=== PATIENT | female | born 1985 | race African-American/Black ===

== ENCOUNTER 2018-02-21 17:47 | Emergency (ER) | payer SELFPAY | END 2018-02-21 18:19 | disposition home or self-care (01) | LOC: BURERS 17:47 | DX: B34.9 Viral infection, unspecified (principal) | CPT/HCPCS: 99283 ==

== ENCOUNTER 2018-11-02 21:31 | Emergency (ER) | payer SELFPAY | END 2018-11-02 21:46 | disposition home or self-care (01) | LOC: BURERS 21:31 | DX: R19.7 Diarrhea, unspecified (principal) | CPT/HCPCS: 99281 ==

== ENCOUNTER 2019-08-22 09:41 | Emergency (ER) | payer SELFPAY | END 2019-08-22 10:07 | disposition home or self-care (01) | LOC: BURERS 09:41 | DX: J02.9 Acute pharyngitis, unspecified (principal) | CPT/HCPCS: 99283 ==

== ENCOUNTER 2019-10-25 14:28 | Emergency (ER) | payer SELFPAY | END 2019-10-25 15:00 | disposition home or self-care (01) | LOC: BURERS 14:28 | DX: R51 Headache (principal); Z79.01 Long term (current) use of anticoagulants | CPT/HCPCS: 99281 ==

== ENCOUNTER 2020-10-06 21:12 | Emergency (ER) | payer SELFPAY ==
[2020-10-07 20:17] LABS: SARS-CoV-2 MS2 Positive; SARS-CoV-2 N Gene Positive; SARS-CoV-2 S Gene Negative; SARS-CoV-2 by NAA DETECTED (NotDetected); SARS-CoV-2 orf1ab Positive
== END 2020-10-06 22:00 | disposition home or self-care (01) ==
LOC: BURERS 21:12
DX: U07.1 COVID-19 (principal)
CPT/HCPCS: 87635; 99283; U0003

== ENCOUNTER 2021-07-19 13:07 | Emergency (ER) | payer OTHER, SELFPAY | END 2021-07-19 14:29 | disposition home or self-care (01) | LOC: BURERS 13:07 | DX: S80.02XA Contusion of left knee, initial encounter (principal); W01.0XXA Fall on same level from slipping, tripping and stumbling without subsequent striking against object, initial encounter; Y92.89 Other specified places as the place of occurrence of the external cause; Y99.0 Civilian activity done for income or pay ==

== ENCOUNTER 2021-09-13 08:43 | Emergency (ER) | payer SELFPAY ==
[2021-09-13] MEDS ORDERED: Fentanyl 100 MCG/2 ML VIAL ONE (09:18)
[2021-09-13 09:24] LABS: Bilirubin Negative (Negative); Blood, Urine Large (Negative); Clarity Cloudy (Clear); Glucose, Urine (Dipstick) 100 mg/dL (Negative); Ketone, Urine Negative (Negative); Leukocyte Trace (Negative); Nitrite Negative (Negative); Protein, Urine (Dipstick) Trace mg/dL (Neg-Trace); Urobilinogen 0.2 mg/dL (Less than 2)
[2021-09-13 09:28] LABS: Specific Gravity, Urine 1.028 (1.002-1.036)
[2021-09-13 09:30] LABS: #Basophils 0.1 thou/uL (0.0-0.2); #Eosinphils 0.2 thou/uL (0.0-0.7); #Lymphocytes 2.1 thou/uL (1.20-3.40); #Monocytes 0.6 thou/uL (0.11-0.59); #Neutrophils 6.7 thou/uL (1.40-6.50); %Basophils 1.2 % (0.0-1.0); %Eosinophils 2.5 % (0.0-10.0); %Monocytes 5.9 % (0.0-10.0); %Neutrophils 68.5 % (42.0-75.0); Hemoglobin 13.4 g/dL (12.0-16.0); Mean Corpuscular Hemoglobin 28.6 pg (27.0-31.0); Mean Corpuscular Volume 86.6 fL (78.0-98.0); Platelet Count 346 thou/uL (130-400); RBC Distribution Width 12.9 % (11.5-14.5); Red Blood Cell (RBC) Count 4.68 mill/uL (4.20-5.40); White Blood Cell (WBC) Count 9.7 thou/uL (4.8-10.8)
[2021-09-13 09:35] LABS: Bacteria/HPF 2+ HPF (None Seen)
[2021-09-13 09:35] LABS: ALT (SGPT) 15 U/L (8-55); AST (SGOT) 11 U/L (5-34); Albumin 3.9 g/dL (3.5-5.0); Alkaline Phosphatase 55 U/L (40-110); Anion Gap 13 mmol/L (10-20); BHCG - Serum Negative (NEGATIVE); BUN (Urea Nitrogen) 10 mg/dL (7.0-18.7); Bilirubin, Total 0.5 mg/dL (0.2-1.2); Calc. Creatinine Clearance 0 mL/min (70-130); Calcium 9.9 mg/dL (7.8-10.44); Carbon Dioxide 23 mmol/L (22-29); Chloride 107 mmol/L (98-107); Globulin 3.8 g/dL (2.4-3.5); Glucose 103 mg/dL (70-105); Lipase 31 U/L (8-78); Pregs Control Background? CLEAR/WHITE (CLR/WHITE); Pregs Control Bar Appear? YES (CONTROL BAR); Protein, Total 7.7 g/dL (6.0-8.3); Sodium 139 mmol/L (136-145)
[2021-09-13] MEDS ORDERED: Morphine 4 MG/ML VIAL ONE (10:38)
[2021-09-13] MEDS ORDERED: diphenhydrAMINE 50 MG/ML VIAL ONE (10:52)
== END 2021-09-13 11:06 | disposition short-term general hospital (02) ==
LOC: BURERS 08:43
DX: N83.201 Unspecified ovarian cyst, right side (principal)
CPT/HCPCS: 36415; 74177; 80053; 81003; 81015; 83690; 84703; 85025; 96374; 96375; J1200; J2270; J3010

== ENCOUNTER 2021-10-14 10:38 | Emergency (ER) | payer SELFPAY ==
[2021-10-14] MEDS ORDERED: Phenazopyridine HCl 97.5 MG TABLET ONE (10:58)
[2021-10-14] MEDS ORDERED: Nitrofurantoin Monohyd/M-Cryst 100 MG CAP ONE (11:29)
[2021-10-14 15:49] LABS: Bilirubin Small (Negative); Blood, Urine Large (Negative); Clarity Cloudy (Clear); Glucose, Urine (Dipstick) Negative (Negative); Ketone, Urine Negative (Negative); Leukocyte Small (Negative); Nitrite Positive (Negative); Protein, Urine (Dipstick) > or equal to 300 mg/dL (Neg-Trace)
[2021-10-14 15:50] LABS: Specific Gravity, Urine 1.025 (1.002-1.036)
[2021-10-14 15:51] LABS: Bacteria/HPF 2+ HPF (None Seen); RBC/HPF Greater than 50 HPF (0-3); Squamous Epithelial 0-3 HPF (0-3); WBC/HPF 21-50 HPF (0-3)
== END 2021-10-14 12:00 | disposition home or self-care (01) ==
LOC: BURERS 10:38
DX: N39.0 Urinary tract infection, site not specified (principal)
CPT/HCPCS: 81001; 99284

== ENCOUNTER 2022-12-02 08:30 | Emergency (ER) | payer MEDICAID, OTHER ==
[2022-12-02] MEDS ORDERED: Dicyclomine 20 MG/2 ML VIAL ONE (09:14)
[2022-12-02 09:47] LABS: Bilirubin Negative (Negative); Blood, Urine Trace (Negative); Clarity Cloudy (Clear); Glucose, Urine (Dipstick) Negative (Negative); Ketone, Urine Negative (Negative); Leukocyte Negative (Negative); Nitrite Negative (Negative); Protein, Urine (Dipstick) Negative (Neg-Trace); Urobilinogen 0.2 mg/dL (Less than 2)
[2022-12-02 09:48] LABS: Specific Gravity, Urine 1.028 (1.002-1.036)
[2022-12-02 09:50] LABS: Pregnancy Test - Urine (BHCG) Negative (Negative); Pregu Control Background? CLEAR/WHITE (CLR/WHITE); Pregu Control Bar Appear? YES (CONTROL BAR); Specific Gravity 1.028 (1.002-1.036)
[2022-12-02 09:52] LABS: #Basophils 0.1 thou/uL (0.0-0.2); #Eosinphils 0.2 thou/uL (0.0-0.7); #Lymphocytes 1.8 thou/uL (1.20-3.40); #Monocytes 0.7 thou/uL (0.11-0.59); %Basophils 1.1 % (0.0-1.0); %Eosinophils 2.2 % (0.0-10.0); %Lymphocytes 18.9 % (21.0-51.0); %Monocytes 6.7 % (0.0-10.0); %Neutrophils 71.2 % (42.0-75.0); Hemoglobin 11.6 g/dL (12.0-16.0); Mean Corpuscular HGB CONC 31.8 g/dL (32.0-36.0); Mean Corpuscular Hemoglobin 27.7 pg (27.0-31.0); Mean Corpuscular Volume 87.1 fl (78.0-98.0); Mean Platelet Volume 5.8 fL (7.4-10.4); Platelet Count 318 10x3/uL (130-400); RBC Distribution Width 14.6 % (11.5-14.5); White Blood Cell (WBC) Count 9.8 10x3/uL (4.8-10.8)
[2022-12-02 09:57] LABS: Bacteria/HPF 3+ HPF (None Seen); Mucous/LPF 4+ LPF (<2+); RBC/HPF 0-3 HPF (0-3); WBC/HPF 0-3 HPF (0-3)
[2022-12-02 10:05] LABS: ALT (SGPT) 20 U/L (8-55); AST (SGOT) 14 U/L (5-34); Alkaline Phosphatase 54 U/L (40-110); Anion Gap 16 mmol/L (10-20); BUN (Urea Nitrogen) 11 mg/dL (7.0-18.7); Bilirubin, Total 0.5 mg/dL (0.2-1.2); Calc. Creatinine Clearance 0 mL/min (70-130); Carbon Dioxide 22 mmol/L (22-29); Chloride 107 mmol/L (98-107); Estimated GFR 106; Globulin 3.4 g/dL (2.4-3.5); Glucose 99 mg/dL (70-105); Lipase 29 U/L (8-78); Potassium 4.1 mmol/L (3.5-5.1); Protein, Total 7.4 g/dL (6.0-8.3); Sodium 141 mmol/L (136-145)
== END 2022-12-02 10:28 | disposition home or self-care (01) ==
LOC: BURERS 08:30
DX: A08.4 Viral intestinal infection, unspecified (principal)
CPT/HCPCS: 80053; 81003; 81015; 81025; 83690; 85025; 96372; 99284

== ENCOUNTER 2024-06-11 15:03 | Emergency (ER) | payer OTHER ==
[2024-06-11] MEDS ORDERED: Acetaminophen 500 MG TAB ONE (15:31)
[2024-06-11] MEDS ORDERED: Ondansetron PF 4 MG/2 ML Vial ONE (15:31)
[2024-06-11 15:56] LABS: #Basophils 0.2 thou/uL (0.0-0.2); #Eosinphils 0.1 thou/uL (0.0-0.7); #Lymphocytes 0.9 thou/uL (1.20-3.40); #Monocytes 0.6 thou/uL (0.11-0.59); #Neutrophils 6.4 thou/uL (1.40-6.50); %Basophils 2.4 % (0.0-1.0); %Eosinophils 1.1 % (0.0-10.0); %Lymphocytes 11.2 % (21.0-51.0); %Monocytes 6.8 % (0.0-10.0); %Neutrophils 78.5 % (42.0-75.0); Hemoglobin 11.2 g/dL (12.0-16.0); Mean Corpuscular Hemoglobin 25.1 pg (27.0-31.0); Mean Corpuscular Volume 81.1 fl (78.0-98.0); Mean Platelet Volume 5.6 fL (7.4-10.4); Platelet Count 339 10x3/uL (130-400); RBC Distribution Width 14.4 % (11.5-14.5); Red Blood Cell (RBC) Count 4.44 mill/uL (4.20-5.40); White Blood Cell (WBC) Count 8.2 10x3/uL (4.8-10.8)
[2024-06-11 16:14] LABS: ALT (SGPT) 19 U/L (8-55); AST (SGOT) 18 U/L (5-34); Albumin 3.6 g/dL (3.5-5.0); Alkaline Phosphatase 49 U/L (40-110); Anion Gap 15 mmol/L (10-20); BUN (Urea Nitrogen) 9 mg/dL (7.0-18.7); Bilirubin, Total 0.6 mg/dL (0.2-1.2); Calc. Creatinine Clearance 0 mL/min (70-130); Calcium 9.5 mg/dL (7.8-10.44); Carbon Dioxide 22 mmol/L (22-29); Chloride 104 mmol/L (98-107); Estimated GFR 91; Glucose 95 mg/dL (70-105); Protein, Total 7.6 g/dL (6.0-8.3); Sodium 137 mmol/L (136-145)
[2024-06-11 16:20] LABS: Bilirubin Negative (Negative); Blood, Urine Negative (Negative); Clarity Cloudy (Clear); Glucose, Urine (Dipstick) Negative (Negative); Ketone, Urine Negative (Negative); Leukocyte Negative (Negative); Nitrite Negative (Negative); Protein, Urine (Dipstick) Trace mg/dL (Neg-Trace); pH, Urine 8.5 (5.0-9.0)
[2024-06-11 16:21] LABS: Pregnancy Test - Urine (BHCG) Negative (Negative); Pregu Control Bar Appear? YES (CONTROL BAR)
[2024-06-11 16:22] LABS: Pregu Control Background? CLEAR/WHITE (CLR/WHITE)
[2024-06-11 16:36] LABS: Bacteria/HPF 1+ HPF (None Seen); CAUTI Indications for Culture Dysuria,urgency,freq; RBC/HPF None Seen HPF (0-3); Squamous Epithelial None Seen HPF (0-3); WBC/HPF 0-3 HPF (0-3)
[2024-06-11 16:37] LABS: Urine Culture Reflex No No
[2024-06-11 16:37] LABS: SARS-CoV-2 E Target Positive; SARS-CoV-2 N2 Target Positive; SARS-CoV-2 NAA Rapid Test DETECTED (NotDetected); SARS-CoV-2 RdRP gene Positive
[2024-06-11] MEDS ORDERED: Ketorolac Tromethamine 30 MG (1 mL) VIAL ONE (16:52)
== END 2024-06-11 17:22 | disposition home or self-care (01) ==
LOC: BURERS 15:03
DX: U07.1 COVID-19 (principal); E66.9 Obesity, unspecified; Z87.19 Personal history of other diseases of the digestive system
CPT/HCPCS: 36415; 71046; 80053; 81001; 81025; 85025; 87804; 96374; 96375; J1885; J2405; U0002

== ENCOUNTER 2024-10-18 19:41 | Emergency (ER) | payer OTHER, SELFPAY ==
[2024-10-18] MEDS ORDERED: Ketorolac Tromethamine 60 MG/2 ML VIAL ONE (20:32)
== END 2024-10-18 21:44 | disposition home or self-care (01) ==
LOC: BURERS 19:41
DX: G44.209 Tension-type headache, unspecified, not intractable (principal); X50.1XXA Overexertion from prolonged static or awkward postures, initial encounter
CPT/HCPCS: 93005; 96372; 99284; J1885